=== PATIENT | female | born 1980 | race Caucasian/White ===

== ENCOUNTER 2018-01-06 09:18 | Day surgery (SDC) | payer BC ==
[2018-01-06] VITALS (12 sets, daily range): BP systolic 101–138; BP diastolic 56–77
[~2018-01-06] VITALS: Ht 152.4 cm; Wt 72.6 kg
--- NOTE | 2018-01-06 07:47 | Pre-Procedure Note/Attestation ---
Pre-Procedure Note/Attestation Complete Prior to Procedure Planned Procedure: right Procedure Narrative: knee arthroscopy acl reconstuction Indications for Procedure Pre-Operative Diagnosis: right knee acl tear Attestation I attest that I discussed the nature of the procedure; its benefits; risks and complications; and alternatives (and the risks and benefits of such alternatives ), prior to the procedure, with the patient (or the patient's legal assistance representative). I attest that, if there was a reasonable possibility of needing a blood transfusion, the patient (or the patient's legal assistance representative) was given the [facility] standardized written summary, pursuant to the [place] Blood Safety Act ([place] Health and Safety Code # 1645, as amended). I attest that I re-evaluated the patient just prior to the surgery and that there has been no change in the patient's H&P, except as documented below: ALINE ENGLAND Jan 06, 2018 07:47
--- NOTE | 2018-01-06 07:48 | Operative Note - PDOC ---
Operative Note Operative Note Pre-op Diagnosis: right knee acl tear Procedure: right knee acl reconstruction Post-op Diagnosis: same as pre-op plus Operative Findings: consistent w/pre-op dx studies Anesthesia: MAC Complications: none Estimated Blood Loss: none Implant(s) used?: Yes ALINE ENGLAND Jan 06, 2018 07:47
[~2018-01-06 09:18] MED LIST: D5 1/2NS 1,000 ML IV SCH; HYDROmorphone 1mg/ml Carpuject SUBQ PRN; NKM; Norco 5mg/325mg tab ORAL PRN; Tylenol #3 tab (300mg/30mg) ORAL PRN; ceFAZolin sod 1gm in NS 55ml IVPB ONE; celeBREX 200mg Cap **SURGERY PATIENTS ONLY ORAL ONE; oxyCONTIN 20mg tab ORAL ONE
[2018-01-06] MEDS ORDERED: Bupivacaine 0.25% Inj 30ml INJ ONE ×2 (10:39→11:13)
[2018-01-06] MEDS ORDERED: Kenalog-40 1ml Vial ONE (10:39)
[2018-01-06] MEDS ORDERED: Ketorolac 30mg Inj ONE (10:39)
[2018-01-06] MEDS ORDERED: Lidocaine 1% 10mg/ml/Epi 0.005mg/ml 30ml vial INJ ONE (10:39)
[2018-01-06] MEDS ORDERED: Morphine Sulfate PF 10 ML ONE (10:39)
[2018-01-06] MEDS ORDERED: Ropivacaine 5mg/ml Vial 30ml INJ ONE (10:40)
[2018-01-06] MEDS ORDERED: Duramorph PF 10mg/10ml amp IV ONE (10:55)
[2018-01-06] MEDS ORDERED: Midazolam 2mg/2ml Inj ONE (11:00)
[2018-01-06] MEDS ORDERED: NS Irrig 1000ml ONE (11:00)
[2018-01-06] MEDS ORDERED: NS Irrig 4000ml IRRIG ONE (11:00)
[2018-01-06] MEDS ORDERED: Lidocaine 1% MPF 10mg/ml 5ml ONE (11:00)
[2018-01-06] MEDS ORDERED: fentaNYL 100 mcg/2 mL IV ONE (11:00)
[2018-01-06] MEDS ORDERED: Propofol 200mg/20ml IV ONE (11:00)
[2018-01-06] MEDS ORDERED: Dexamethasone 4mg/ml vial ONE (11:00)
[2018-01-06] MEDS ORDERED: LR 1000ml ONE (11:00)
[2018-01-06] MEDS ORDERED: EPINEPHrine 1mg/1ml Amp ONE (11:13)
[2018-01-06] MEDS ORDERED: LR 1000ml 1,000 ML IVLG SCH (11:31)
--- NOTE | 2018-01-06 11:39 | Anethesia Preoperative Eval ---
Anesthesia Pre-op PMH/ROS General Date of Evaluation: Jan 06, 2018 Time of Evaluation: 10:56 Anesthesiologist: Charlie ASA Score: ASA 1 Mallampati Score Class I : Soft palate, uvula, fauces, pillars visible Class II: Soft palate, uvula, fauces visible Class III: Soft palate, base of uvula visible Class IV: Only hard plate visible Mallampati Classification: Class I Surgeon: Von Diagnosis: R Knee ACL Derangement Surgical Procedure: R Knee ACL Repair Anesthesia History: none Family History: no anesthesia problems Allergies: Coded Allergies: No Known Allergies (Unverified , 01/06/18) Medications: see eMAR Past Medical History PSxH Narrative: Nasal SX Anesthesia Pre-op Phys. Exam Physician Exam Last Vital Signs Date Time Temp Pulse Resp B/P (MAP) Pulse Ox O2 Delivery O2 Flow Rate FiO2 01/06/18 09:53 97.0 81 18 109/69 97 Room Air 97.0 Constitutional: NAD Neurologic: CN 2-12 intact Cardiovascular: RRR Respiratory: CTA Gastrointestinal: S/NT/ND Airway Exam Mallampati Score: Class I MO: full ROM: full Teeth: intact Anesthesia Pre-op A/P Labs Urine Test Test 01/06/18 09:30 Urine HCG, Qualitative Negative Risk Assessment & Plan Assessment: ASA 1 Plan: GA, BIS, R Adductor, R Femoral Block Status Change Before Surgery: No Pre-Antibiotics Dru Grams Ancef IV Given Within 1 Hr of Incision: Yes Time Given: 12:20 Kevin Guerra MD Jan 06, 2018 11:39
--- NOTE | 2018-01-06 11:40 | Immediate Post-Op Evaluation ---
Immediate Post-Op Evalulation Immediate Post-Op Evalulation Procedure: R ACL Repair Date of Evaluation: Jan 06, 2018 Time of Evaluation: 13:47 IV Fluids: 1100 LR Blood Products: 0 Estimated Blood Loss: 25 Urinary Output: 0 Blood Pressure Systolic: 131 Blood Pressure Diastolic: 75 Pulse Rate: 121 Respiratory Rate: 16 O2 Sat by Pulse Oximetry: 97 Temperature (Fahrenheit): 99.9 Pain Score (1-10): 2 Nausea: No Vomiting: No Complications 0 Patient Status: awake, reacts, patent, extubated, none Hydration Status: adequate Dru Grams Ancef IV Given Within 1 Hr of Incision: Yes Time Given: 11:20 Kevin Guerra MD Jan 06, 2018 11:40
--- NOTE | 2018-01-06 11:40 | 48 Hour Post Anesthesia Eval ---
Post Anesthesia Evaluation Procedure: R ACL Repair Date of Evaluation: Jan 06, 2018 Time of Evaluation: 15:52 Blood Pressure Systolic: 117 0: 74 Pulse Rate: 73 Respiratory Rate: 18 Temperature (Fahrenheit): 98.6 O2 Sat by Pulse Oximetry: 99 Airway: patent Nausea: No Vomiting: No Pain Intensity: 2 Hydration Status: adequate Cardiopulmonary Status: Stable Mental Status/LOC: patient returned to baseline Follow-up Care/Observations: 0 Post-Anesthesia Complications: 0 Follow-up care needed: ready to discharge Kevin Guerra MD Jan 06, 2018 11:40
[2018-01-06] MEDS ORDERED: DiphenhydrAMINE 50mg/ml Inj IVP PRN (11:45)
[2018-01-06] MEDS ORDERED: Midazolam 2mg/2ml Inj IVP PRN (11:45)
[2018-01-06] MEDS ORDERED: LORazepam Inj 2mg/ml 1ml IV PRN (11:45)
[2018-01-06] MEDS ORDERED: Atropine Inj 1mg/10ml Syr IV PRN (11:45)
[2018-01-06] MEDS ORDERED: HYDROcodone/Acetamin 7.5/325 tab ORAL PRN (11:45)
[2018-01-06] MEDS ORDERED: Norco 5mg/325mg tab ORAL PRN (11:45)
[2018-01-06] MEDS ORDERED: fentaNYL 100 mcg/2 mL IV PRN (11:45)
[2018-01-06] MEDS ORDERED: Labetalol 5mg/ml 20ml vial IV PRN (11:45)
[2018-01-06] MEDS ORDERED: Hydromorphone 0.5mg/0.5ml inj IVP PRN (11:45)
[2018-01-06] MEDS ORDERED: oxyCODONE HCL/Acetaminophen 5/325mg ORAL PRN (11:45)
[2018-01-06] MEDS ORDERED: Acetaminophen (Non formulary) 100 ML IV ONE (11:45)
[2018-01-06] MEDS ORDERED: Ketorolac 30mg Inj IV PRN ×2 (11:45)
--- NOTE | 2018-01-06 17:45 | Operative Note - Dictated ---
DATE OF OPERATION: 01/06/2018 PREOPERATIVE DIAGNOSIS: Right knee ACL tear. POSTOPERATIVE DIAGNOSIS: Right knee ACL tear. PROCEDURES: 1. Right knee arthroscopic ACL reconstruction with Tibialis anterior allograft to right knee. 2. Synovectomy, lateral and patellofemoral compartment. SURGEON: Randy Longoria M.D. ANESTHESIA: Femoral with general. INDICATION FOR PROCEDURE: The patient is a 37-year-old female, who sustained an ACL tear. She had continued instability and pain. She elected to undergo right knee ACL reconstruction, tibialis anterior allograft. Risks, limitations, expectations, complications of procedure were discussed in detail. All questions addressed. DESCRIPTION OF PROCEDURE: An informed consent was obtained. The patient was brought to the operating room where the patient was placed under general anesthesia. The femoral adductor block was placed. Tourniquet was applied to the right proximal thigh. Right leg was prepped and draped in sterile manner. Examination shows positive reverse pivot-shift and positive Avelina testing. The tibialis anterior allograft was then prepared. Inferolateral stab incision was then made. Trocar was introduced into the knee joint. There was no significant chondral damage in the patellofemoral compartment. Medial gutter was free of any loose bodies. The intercondylar notch was entered and the ACL was completely deficient. The lateral compartment was entered and free of any meniscal chondral damage. At this point, the stump of the ACL was debrided. The [id number] femoral guide was then placed and the femoral tunnel was prepared. The tibial guide was then placed on the proximal tibia and tibial tunnel was prepared. At this point, the tibialis anterior allograft was then passed through the tibial tunnel into the intercondylar notch. Femoral tunnel was then fashioned and an interference screw was placed. Camera was repositioned in the knee joint and no prominence of the hardware. At this point, the instruments were removed. Portal sites were closed with 3-0 Monocryl sutures. Steri-Strips and a sterile dressing were applied. The patient was awoken and taken to recovery room with stable vital signs. ESTIMATED BLOOD LOSS: None. COMPLICATIONS: None. SPECIMENS: None. IMPLANTS: Include tibialis anterior allograft, a Biomet ToggleLoc, and a 10 x 35 interference screw. Randy Longoria M.D. DR: Carson JOB#: [id number] CC: CHAO
[2018-02-02] MEDS ORDERED: IBUPROFEN600 MG ORAL (12:03)
[2018-02-02] MEDS ORDERED: TRAMADOL HCL50 MG ORAL (12:03)
== END 2018-01-06 15:40 | disposition home or self-care (01) ==
LOC: SUR 09:18
DX: S83.511A Sprain of anterior cruciate ligament of right knee, initial encounter (principal); X58.XXXA Exposure to other specified factors, initial encounter; Y93.9 Activity, unspecified; Y92.9 Unspecified place or not applicable
CPT/HCPCS: 29876; 29888; 81025; C1713; J0171; J0690; J1100; J1170; J1885; J2250; J2274; J2405; J2704; J2795; J3010; J3301; J3490; J7120; 94003; 94150